=== PATIENT | female | born 1955 | race African-American/Black ===

== ENCOUNTER 2020-01-22 20:08 | Emergency (ER) | payer OTHER ==
[~2020-01-22] VITALS: Ht 167.6 cm; Wt 108.9 kg
[2020-01-22] MEDS ORDERED: NORVASC5 M1 PO (20:53)
[2020-01-22] MEDS ORDERED: METFORMIN HCL500 M3 PO (20:53)
[2020-01-22] MEDS ORDERED: GLUCOTROL10 MG PO (20:54)
[2020-01-22] MEDS ORDERED: NEURONTIN300 MG PO (20:54)
[2020-01-22] MEDS ORDERED: FAMOTIDINE 20 M20 MG PO (20:54)
[2020-01-22] MEDS ORDERED: VITAMIN B-121000 MC2 PO (20:55)
[2020-01-22] MEDS ORDERED: PREDNISONE 20 M20 MG PO (21:47)
[2020-01-22] MEDS ORDERED: ULTRAM 50MG TAB50 MG PO (21:47)
[2020-01-22 22:40] VITALS: BP 115/70
== END 2020-01-22 22:41 | disposition home or self-care (01) ==
LOC: ER 20:08
DX: T78.3XXA Angioneurotic edema, initial encounter (principal); I10 Essential (primary) hypertension; E11.9 Type 2 diabetes mellitus without complications; Z79.84 Long term (current) use of oral hypoglycemic drugs; Z79.899 Other long term (current) drug therapy; Z88.8 Allergy status to other drugs, medicaments and biological substances